=== PATIENT | female | born 1980 | race Two or more races ===

== ENCOUNTER 2022-06-24 13:36 | Emergency (ER) | payer SELFPAY ==
[~2022-06-24] VITALS: Ht 160 cm; Wt 82.0 kg
[2022-06-24 16:34] LABS: Basophils # (auto) 0.2 10 ^3/uL (0-0.2); Basophils % (auto) 1.6 % (0.0-2.0); Eosinophils # (auto) 0.1 10 ^3/uL (0-0.8); Eosinophils % (auto) 0.6 % (0.0-7.0); Hematocrit 40.3 % (36.0-46.0); Hemoglobin 12.8 g/dL (12.2-16.2); Lymphocytes # (auto) 1.5 10 ^3/uL (0.4-5.4); Lymphocytes % (auto) 11.9 % (10.0-50.0); Mean Corpuscular Hemoglobin 27.3 pg (28.0-32.0); Mean Corpuscular Hgb Conc. 31.7 g/dL (32.0-36.0); Mean Corpuscular Volume 86.1 fL (80.0-100.0); Monocytes # (auto) 0.7 10 ^3/uL (0-1.3); Monocytes % (auto) 5.2 % (0.0-12.0); Neutrophils # (auto) 10.4 10 ^3/uL (1.6-8.6); Neutrophils % (auto) 80.7 % (37.0-80.0); Nucleated Red Blood Cells % 0.1 %; Red Blood Cells 4.68 10^6/uL (4.0-5.20); Red Cell Distribution Width 14.5 % (11.8-14.3); White Blood Cell 12.9 10^3/uL (4.4-10.8)
[2022-06-24 16:50] LABS: Albumin 3.6 g/dL (3.4-5.0); Calcium 8.4 mg/dL (8.5-10.1); Potassium 3.8 mmol/L (3.5-5.1)
[2022-06-24 16:53] LABS: BUN/Creatinine Ratio 17.2
[2022-06-24 16:55] LABS: Bilirubin, Total 0.4 mg/dL (0.2-1.0); Total Protein 7.2 g/dL (6.4-8.2)
[2022-06-25] MEDS ORDERED: NITR-87 PO (04:12)
[2022-06-25] MEDS ORDERED: NITROFURANTOIN 100 mg CAP PO ONE (04:15)
[2022-06-25] MEDS ORDERED: ACETAMINOPHEN 500 MG TAB PO ONE (04:15)
[2022-06-25 04:16] VITALS: BP 135/62
== END 2022-06-25 04:10 | disposition home or self-care (01) ==
LOC: ER 13:36
DX: N39.0 Urinary tract infection, site not specified (principal); N83.209 Unspecified ovarian cyst, unspecified side; R10.2 Pelvic and perineal pain
CPT/HCPCS: 36415; 76856; 80053; 84702; 85025